=== PATIENT | female | born 1940 | race Caucasian/White ===

== ENCOUNTER 2020-01-01 19:33 | Emergency (ER) | payer MEDICARE ==
[2020-01-01] MEDS ORDERED: Pantoprazole IV* 40 MG IV ONE (20:28)
[2020-01-01] MEDS ORDERED: Al Hydrox/Mg Hydrox/Simet LIQ* 30 ML UDC PO ONE (20:28)
[2020-01-01] MEDS ORDERED: Lidocaine 2% VISCOUS* 15 ML UDC PO ONE (20:28)
--- NOTE | 2020-01-01 20:34 | ED ---
Complex/Multi-Sys Presentation - HPI Summary HPI Summary: 79-year-old female presents to the emergency department today complaining of 3 out of 10 pain in her posterior shoulders and jaw which began this afternoon. Patient states her symptoms began abruptly after eating which she initially attributed to indigestion. Patient states she took Tums which gave her mild relief however after eating dinner at approximately 1800 this date her symptoms returned now with associated jaw pain. Patient was concerned with his jaw pain and presented to the emergency department. Patient denies past medical history of aortic aneurysm or dissection. Patient denies past medical history of myocardial infarction. Patient denies history of trauma. At this time patient is resting comfortable in the hospital stretcher and denies fever, cough, sore throat, chest pain, abdominal pain, pain with urination, nausea, vomiting, diarrhea, rash. - History Of Current Complaint Chief Complaint: EDBackInjuryPain Time Seen by Provider: 01/01/20 20:18 Hx Obtained From: Patient Onset/Duration: Sudden Onset, Gradual Onset, Lasting Hours Timing: Constant Severity Currently: Mild Severity Initially: Mild Character: Unable To Describe - Indigestion Associated Signs And Symptoms: Positive: Back Pain. Negative: Confusion, Agitation, Dizziness, Weakness, Syncope, Headache, SOB, Cough, Wheezing, Chest Pain, Palpitations, Nausea, Vomiting, Diarrhea, Abdominal Pain, Fever - Allergies/Home Medications Allergies/Adverse Reactions: Allergies Allergy/AdvReac Type Severity Reaction Status Date / Time No Known Allergies Allergy Verified 01/01/20 19:37 Home Medications: Home Medications Omeprazole 20 mg PO DAILY #30 capsule. 01/01/20 [Rx] PMH/Surg Hx/FS Hx/Imm Hx Infectious Disease History: No Infectious Disease History: Denies: Traveled Outside the [place] in Last 30 Days Review of Systems Constitutional: Negative Eyes: Negative ENT: Negative Cardiovascular: Negative Respiratory: Negative Gastrointestinal: Negative Genitourinary: Negative Musculoskeletal: Negative Skin: Negative Neurological/Mental Status: Negative Psychological: Normal All Other Systems Reviewed And Are Negative: Yes Physical Exam - Summary Physical Exam Summary: Patient is in no acute distress. Patient doesn't complain hospital stretcher. There is no evidence of deformity, edema, erythema, ecchymosis to the patient's back or shoulders. Inspection of patient's abdomen reveals no masses. Auscultation reveals normoactive bowel sounds. No pain with palpation of the abdomen. Negative Mckeon's, McBurney sign. No evidence of pulsatile mass consistent with aortic aneurysm. Triage Information Reviewed: Yes Vital Signs On Initial Exam: Initial Vitals Temp Pulse Resp BP Pulse Ox 98.4 F 74 15 163/88 96 01/01/20 19:35 01/01/20 19:35 01/01/20 19:35 01/01/20 19:35 01/01/20 19:35 Vital Signs Reviewed: Yes Appearance: Positive: Well-Appearing, No Pain Distress, Well-Nourished Skin: Positive: Warm, Skin Color Reflects Adequate Perfusion Eyes: Positive: EOMI, COLE ENT: Positive: Hearing grossly normal Respiratory/Lung Sounds: Positive: Clear to Auscultation, Breath Sounds Present Cardiovascular: Positive: RRR, S1, S2 Abdomen Description: Positive: Nontender, Soft. Negative: CVA Tenderness (R), CVA Tenderness (L), Distended, Guarding, McBurney's Point Tenderness, Pulsatile Mass Bowel Sounds: Positive: Present Musculoskeletal: Positive: Strength/ROM Intact Neurological: Positive: Sensory/Motor Intact, Alert, Oriented to Person Place, Time, Normal Gait, Facial Symmetry, Speech Normal Psychiatric: Positive: Normal, Affect/Mood Appropriate AVPU Assessment: Alert Procedures - Sedation Patient Received Moderate/Deep Sedation with Procedure: No Diagnostics - Vital Signs Vital Signs Temp Pulse Resp BP Pulse Ox 01/01/20 20:21 70 24 155/77 95 01/01/20 19:35 98.4 F 74 15 163/88 96 - Laboratory Result Diagrams: 01/01/20 20:40 01/01/20 20:40 Lab Statement: Any lab studies that have been ordered have been reviewed, and results considered in the medical decision making process. Complex Multi-Symp Course/Dx Course Of Treatment: Patient was evaluated in the emergency department today for shoulder and jaw pain. Vitals noted and stable. EKG was done promptly for suspicion of possible aortic dissection which shows no evidence of STEMI. Normal sinus rhythm at a rate of 68 beats per minute. Normal [place] and QT interval. Left axis deviation. T wave inversion in leads 3. There is evidence of Q waves in leads 3. No prior EKGs available for comparison. Labs returned showing a leukocytosis with a white blood cell count of 7.6. CRP is mildly elevated at 10.12. No evidence of anemia. There are no significant electrolyte derangements. Troponin is 0.00. His negative at 32. No elevation in LFTs suggestive of possible biliary pathology. Patient was given oral Maalox , viscous lidocaine and IV Protonix for her pain. Patient states her pain significantly subsided after medication. There is no evidence of significant metabolic pathology requiring intervention at this time. Due to recent pain is possible patient's symptoms are due to indigestion. Patient given prescription for omeprazole and discharged to outpatient follow-up. - Diagnoses Differential Diagnoses/HQI/PQRI: Other - Aortic dissection, myocardial infarction, peptic ulcer disease, indigestion, biliary obstruction Provider Diagnoses: Shoulder pain Discharge ED - Sign-Out/Discharge Documenting (check all that apply): Patient Departure - Discharge Plan Condition: Stable Disposition: HOME Prescriptions: Omeprazole 20 mg PO DAILY #30 capsule. Patient Education Materials: Acute Abdominal Pain (ED) Referrals: Marcos Reeves MD [Primary Care Provider] - 5 Days Additional Instructions: Please take omeprazole as directed. Please take Maalox plus as needed which can be picked up in the pharmacy. Please follow-up with your primary care provider or care connections for further evaluation and management in 5 days. Please return to this emergency department immediately should you develop any new or worsening symptoms. - Billing Disposition and Condition Condition: STABLE Disposition: Home - Attestation Statements Provider Attestation: I was available for consult. This patient was seen by the [facility]. The patient was not presented to, seen by, or examined by me. Reese Garcia MD
[2020-01-01 20:50] LABS: ABS Basophils 0.1 10^3/ul (0-0.2); ABS Eosinophils 0.2 10^3/ul (0-0.6); ABS Lymphocytes 2.2 10^3/ul (1.0-4.8); ABS Monocytes 0.6 10^3/ul (0-0.8); ABS Neutrophils 4.5 10^3/ul (1.5-7.7); Eosinophil % 3.2 %; Hematocrit 38 % (35-47); Hemoglobin 13.5 g/dL (12.0-16.0); Lymphocyte % 28.4 %; Mean Corpuscular HGB Conc 35 g/dL (31-36); Mean Corpuscular Hemoglobin 31 pg (27-31); Mean Corpuscular Volume 87 fL (80-97); Mean Platelet Volume 7.5 fL (7.4-10.4); Platelet Count 297 10^3/uL (150-450); Red Blood Count 4.37 10^6 /uL (3.70-4.87); Red Cell Distribution Width 14 % (10-15); White Blood Count 7.6 10^3/uL (3.5-10.8)
[2020-01-01 21:07] LABS: Albumin 3.9 g/dL (3.2-5.2); Albumin/Globulin Ratio 1.3 (1-3); C Reactive Protein 10.12 mg/L (<8.01); Calcium 10.2 mg/dL (8.6-10.3); EGFR African American 64.9 (>60); EGFR Non-African American 53.6 (>60); Total Bilirubin 0.3 mg/dL (0.2-1.0); Total Protein 6.9 g/dL (6.4-8.9)
[2020-01-01 21:27] LABS: Potassium 4.5 mmol/L (3.5-5.0)
== END 2020-01-01 22:23 | disposition home or self-care (01) ==
LOC: ED 19:33
DX: M25.512 Pain in left shoulder (principal); M25.511 Pain in right shoulder; R68.84 Jaw pain; M54.9 Dorsalgia, unspecified; Z79.899 Other long term (current) drug therapy
CPT/HCPCS: 36415; 80053; 83605; 83690; 84484; 85025; 86140; 93005; 96374; 99283; A9270-GY